=== PATIENT | male | born 1995 | race Caucasian/White ===

== ENCOUNTER 2025-02-25 15:06 | Emergency (ER) | payer SELFPAY ==
[2025-02-25 15:14] VITALS: BP 125/84
--- NOTE | 2025-02-25 15:44 | ED.GENMED ---
History of Present Illness
General
Chief Complaint: Dental Problem
Source: patient
Exam Limitations: none
Time Seen by Provider: 02/25/25 15:35
Nursing documentation reviewed up to this point in time: agreed with
History of Present Illness
History of Present Illness:
Patient to ED with complaint of pain to right molar. He has had pain for many months. Treated in past with antibiotics but reports pain returns. He does not recall the last time he saw a dentist. To ED for eval. No facial swelling. No
fever/chills
Past History
Past History
ED Past Medical History: None
ED Past Surgical History: None
Review of Systems
Review of Systems
Allergies reviewed?: Yes
All Other Systems: ROS reviewed and negative except as documented in HPI and ROS
Constitutional: Reports no symptoms
EENT: Reports other (pain right lower 2nd molar.)
Respiratory: Reports no symptoms
Cardiac: Reports no symptoms
ABD/GI: Reports no symptoms
: Reports no symptoms
Musculoskeletal: Reports no symptoms
Skin: Reports no symptoms
Neurological: Reports no symptoms
Psychiatric: Reports no symptoms
Phy Exam
General Physical Exam
General Presentation: mild distress
General age: appears stated age
General Skin: warm and dry
General Habitus: normal
General Mental: alert
ENT Exam
ENT Exam: EOMI, pharynx normal, neck supple, normocephalic, swallowing well and other (pain right lower 2nd molar. Tooth is broken. No evidence of abscess. No trismus)
Musculoskeletal Exam
Musculoskeletal Exam: full ROM
Skin Exam
Skin Exam: normal color, warm/dry and no rash
Psychiatric Exam
Psychiatric Exam: normal mood/affect
Course
Orders/Labs/Results
Orders:
Orders
02/25/25 15:43
Penicillin V Potassium [Pen Vk] 500 mg PO NOW STA
Vital Signs
Initial and Last Documented VS:
Initial Vital Signs
Temp Pulse Resp BP Pulse Ox
98.1 F 69 16 125/84 97
02/25/25 15:14 02/25/25 15:14 02/25/25 15:14 02/25/25 15:14 02/25/25 15:14
Last Documented Vital Signs
Temp Pulse Resp BP Pulse Ox
98.1 F 69 16 125/84 97
02/25/25 15:14 02/25/25 15:14 02/25/25 15:14 02/25/25 15:14 02/25/25 15:44
Procedures
Dentalgia
Dental Block: Nerve Block
Bupivacaine 0.5%/Epi Dental cartridge administered?: Yes
Pt tolerated procedure well w/ no immediate adverse effects?: Yes
Other: No visible absess.
*Pulse Oximetry
SaO2: 97
Oxygen Mode of Delivery: Room air
*Critical Care Note
Total Time (30-74mins, 75-104mins- exclusive of procedures): Not Applicable
Update Note
Update Note:
Patient to ED with complaint og pain to right lower 2nd molar for many months. He does not have a dentist. States he was pplaced on antibiotics in the past for similar pain with improvement but pain returns. No facial swelling, no visible
abscess, no tismus, no fever/chills. Broken right lower 2nd molar. Digital block with bupivicaine. Will place on Pen VK qid. He was instructed on need to followup [facility] dentist next week. Given instructions on s/s to return to ED and he is
agreeable to plan.Rx for 6 norco tabs sent to pharmacy. [facility] [employer] checked, no report of prior narcotic use.
ED Attending Note
-
Portions of this chart may have been created with voice recognition software.� Occasional wrong word or��sound alike� substitutions may have occurred due to the inherent limitations of voice recognition software.
Discharge Plan
Departure
Patient Disposition: Home (Routine Discharge)
Date of Disposition: 02/25/25
Time of Disposition: 15:44
Patient with high blood pressure during this ER visit?: No
Condition: Good
Covid-19: Not Applicable
Discharge Problem:
Pain, dental
Instructions: Dental Pain (DC)
Prescriptions:
New
penicillin V potassium 500 mg tablet
500 mg PO QID Qty: 28 0RF
hydrocodone-acetaminophen 5-325 mg tablet
1 tab PO Q4H PRN (Reason: Pain) Qty: 6 0RF
Activity Restrictions/Additional Instructions:
Follow up with your dentist on Thursday.
Interventions
Interventions:
*Risk Screen - Suicide Last Done: 02/25/25 15:14
*General Assessment Last Done: 02/25/25 15:27
*Neglect/Abuse Screening Last Done: 02/25/25 15:14
*ED- Fall Risk Assessment Last Done: 02/25/25 15:27
*ED COVID-19 Vaccine History Last Done: 02/25/25 15:27
Discharge Date and Time
Print Language: GREENLANDIC
[2025-02-25] MEDS: PEN VK 500 MG PO (15:50)
[2025-02-25 15:53] VITALS: BP 128/78
== END 2025-02-25 15:54 | disposition home or self-care (01) ==
LOC: EMR 15:06
PROVIDERS: EMERGENCY PHYSICIAN Emergency Medicine
DX: K08.89 Other specified disorders of teeth and supporting structures (principal)
CPT/HCPCS: 99284; 64450